=== PATIENT | female | born 1980 | race American Indian/Alaskan Native ===

== ENCOUNTER 2016-08-02 18:18 | Emergency (ER) | payer SELFPAY ==
--- NOTE | 2016-08-02 21:23 | Emergency Department Report ---
ED Lower Extremity HPI - General Chief Complaint: Extremity Problem,Nontraumatic Stated Complaint: RT FOOOT SEVERE PAIN/POSS TORN Time Seen by Provider: 08/02/16 21:18 Source: patient Mode of arrival: Ambulatory Limitations: No Limitations - History of Present Illness Initial Comments: 36-year-old female past medical history obesity presents with complaint of 2-3 months of right heel pain. Patient denies any direct injury to foot or ankle. Denies any acute trauma. States that she has had intermittent pain at the level of the heel on the back of the heel for several months. 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 Patient is fully ambulatory although states that when she steps down on her right heel she feels mild discomfort. Patient is able to ambulate without any assistance. Denies any fevers no chills no changes on skin. Denies any numbness tingling or paresthesias in foot or ankle. States that pain radiates from the heel to the midfoot on the lower aspect of the foot. Patient states the pain is worse at the end of the day after working for several hours. Patient denies using any medicines to medicate her pain at home. Onset/Timin -: month(s) Injury: Foot: Right (2-3 months of right sided heel and foot pain) Place: home, work Severity: moderate Severity scale (0 -10): 4 Improves With: nothing Worsens With: weight bearing - Related Data Previous Rx's Medication Instructions Recorded Last Taken Type Amoxicillin/K Clav Tab [Augmentin 1 tab PO BID #20 tablet 11/19/13 Unknown Rx 875MG] Ibuprofen [Motrin] 800 mg PO Q8H PRN #30 tablet 05/31/14 Unknown Rx traMADol [Ultram 50 MG tab] 50 mg PO Q6HR PRN #14 tablet 05/31/14 Unknown Rx Naproxen [Naprosyn TAB] 500 mg PO BID PRN #30 tablet 08/02/16 Unknown Rx Allergies Allergy/AdvReac Type Severity Reaction Status Date / Time No Known Allergies Allergy Unverified 11/19/13 11:10 ED Review of Systems ROS: Stated complaint: RT FOOOT SEVERE PAIN/POSS TORN Other details as noted in HPI Constitutional: denies: chills, fever Eyes: denies: eye pain, eye discharge, vision change ENT: denies: ear pain, throat pain Respiratory: denies: cough, shortness of breath, wheezing Cardiovascular: denies: chest pain, palpitations Endocrine: no symptoms reported Gastrointestinal: denies: abdominal pain, nausea, diarrhea Genitourinary: denies: urgency, dysuria, discharge Musculoskeletal: as per HPI. denies: back pain, joint swelling, arthralgia Skin: denies: rash, lesions Neurological: denies: headache, weakness, paresthesias Psychiatric: denies: anxiety, depression Hematological/Lymphatic: denies: easy bleeding, easy bruising ED Past Medical Hx - Past Medical History Previous Medical History?: No - Surgical History Past Surgical History?: Yes Additional Surgical History: - Social History Smoking Status: Current Every Day Smoker Substance Use Type: Alcohol - Medications Home Medications: Home Medications Medication Instructions Recorded Confirmed Last Taken Type Amoxicillin/K Clav Tab [Augmentin 1 tab PO BID #20 tablet 11/19/13 Unknown Rx 875MG] Ibuprofen [Motrin] 800 mg PO Q8H PRN #30 tablet 05/31/14 Unknown Rx traMADol [Ultram 50 MG tab] 50 mg PO Q6HR PRN #14 tablet 05/31/14 Unknown Rx Naproxen [Naprosyn TAB] 500 mg PO BID PRN #30 tablet 08/02/16 Unknown Rx ED Physical Exam - General Limitations: No Limitations General appearance: alert, in no apparent distress - Head Head exam: Present: atraumatic, normocephalic - Eye Eye exam: Present: normal appearance, PERRL, EOMI - ENT ENT exam: Present: mucous membranes moist - Neck Neck exam: Present: normal inspection - Respiratory Respiratory exam: Present: normal lung sounds bilaterally. Absent: respiratory distress - Cardiovascular Cardiovascular Exam: Present: regular rate, normal rhythm. Absent: systolic murmur, diastolic murmur, rubs, gallop - GI/Abdominal GI/Abdominal exam: Present: soft, normal bowel sounds - Extremities Exam Extremities exam: Present: normal inspection - Expanded Lower Extremity Exam Right Hip exam: Present: normal inspection, full ROM Upper Leg exam: Present: normal inspection, full ROM Knee exam: Present: normal inspection, full ROM Lower Leg exam: Present: normal inspection, full ROM Ankle exam: Present: normal inspection, full ROM Foot/Toe exam: Present: normal inspection, full ROM (range of motion foot inversion plantar flexion dorsiflexion fully intact and against resistance and gravity), tenderness (patient has mild tenderness at the heel worse with ambulation. Patient also has mild tenderness in mid foot on the palpation) Neuro vascular tendon exam: Present: no vascular compromise (distal dorsalis pedis and posterior tibial pulses fully intact) Gait: Positive: observed and normal 1 - Mild discomfort here 2 - Mild discomfort here as well - Back Exam Back exam: Present: normal inspection - Neurological Exam Neurological exam: Present: alert, oriented X3, CN II-XII intact, normal gait - Psychiatric Psychiatric exam: Present: normal affect, normal mood - Skin Skin exam: Present: warm, dry, intact, normal color. Absent: rash ED Course Vital Signs 08/02/16 19:10 Temperature 97.7 F Pulse Rate 72 Respiratory 20 Rate Blood Pressure 128/72 O2 Sat by Pulse 100 Oximetry ED Lower Extremity MDM - Medical Decision Making A/P: Plantar fasciitis right heel/foot 1-based on patient's symptoms and distribution of pain and clinical history patient has clinical plantar fasciitis no acute trauma reported no clinical signs of infection neurovascularly intact distal sensation and pulses fully intact and foot. No clinical signs of Achilles tendon injury 2-patient is fully ambulatory without assistance 3-naproxen when necessary, R ICE therapy, Josué wrap to foot, orthopedic shoe. I advised patient to use comfortable sneakers and to acquire orthotics and to follow-up with podiatry 4-I educated patient on symptoms of plantar fasciitis Critical care attestation.: If time is entered above; I have spent that time in minutes in the direct care of this critically ill patient, excluding procedure time. ED Disposition Clinical Impression: Plantar fasciitis of right foot, Chronic pain of right heel Disposition: DISCHARGED TO HOME OR SELFCARE Is pt being admited?: No Does the pt Need Aspirin: No Condition: Stable Instructions: Plantar Fasciitis (ED), RICE Therapy (ED) Prescriptions: Naproxen [Naprosyn TAB] 500 mg PO BID PRN #30 tablet PRN Reason: Pain Referrals: SEBASTIAN MONROY DPM [Staff Physician] - 3-5 Days Forms: Work/School Release Form(ED) Time of Disposition: 21:26
[2016-08-02 21:55] VITALS: BP 122/74
== END 2016-08-02 21:54 | disposition home or self-care (01) ==
LOC: ED 18:18
DX: M72.2 Plantar fascial fibromatosis (principal); G89.29 Other chronic pain; M25.571 Pain in right ankle and joints of right foot; F17.200 Nicotine dependence, unspecified, uncomplicated
CPT/HCPCS: 99283

== ENCOUNTER 2017-04-10 23:48 | Emergency (ER) | payer SELFPAY ==
[2017-04-11] MEDS ORDERED: ASPIRIN PO ONE (00:42)
[2017-04-11 01:27] LABS: Basophils % (Auto) 0.2 % (0.0-1.8); Eosinophils # (Auto) 0.1 K/mm3 (0.0-0.4); Eosinophils % (Auto) 0.8 % (0.0-4.3); Hematocrit 41.7 % (30.3-42.9); Hemoglobin 13.7 gm/dl (10.1-14.3); Lymphocytes # (Auto) 3.3 K/mm3 (1.2-5.4); Lymphocytes % (Auto) 36.9 % (13.4-35.0); Mean Corpuscular HGB Conc 33 % (30-34); Mean Corpuscular Hemoglobin 30 pg (28-32); Mean Corpuscular Volume 91 fl (79-97); Monocytes # (Auto) 0.5 K/mm3 (0.0-0.8); Monocytes % (Auto) 5.2 % (0.0-7.3); Platelet Count 239 K/mm3 (140-440); Red Blood Count 4.58 M/mm3 (3.65-5.03); Red Cell Distribution Width 13.3 % (13.2-15.2)
[2017-04-11 01:40] LABS: BUN/Creatinine Ratio 18; Blood Urea Nitrogen 14 mg/dL (7-17); Calcium 8.6 mg/dL (8.4-10.2); Hemolysis Index 10
[2017-04-11 13:37] VITALS: BP 105/71
--- NOTE | 2017-04-11 17:05 | Emergency Department Report ---
ED Chest Pain HPI - General Chief Complaint: Chest Pain Stated Complaint: BACK/CHEST PAIN Time Seen by Provider: 04/11/17 17:00 Source: patient Mode of arrival: Ambulatory Limitations: No Limitations - History of Present Illness Initial Comments: Patient is a 36-year-old female presents to the emergency room with complaints of lower back pain mid back pain and upper back pain as well as chest pain. She states it is muscular. Patient states she works for [employer] has to move a lot of heavy boxes. Patient denies shortness of breath and cough and fever and chills and dizziness and diaphoresis. Patient states the pain is worse when she moves or palpates her chest wall. Patient states her back is very tight. He denies past medical history. Patient denies trauma or fall. MD Complaint: chest pain -: Gradual, days(s) (back and chest pain started 2 days ago) Onset: during rest Pain Location: left chest, right chest Pain Radiation: none Severity: severe Severity scale (0 -10): 10 Quality: sharp, squeezing Consistency: intermittent Improves With: rest, remaining still Worsens With: palpation, movement Context: other (patient states she works for [employer] and has to lift and move a lot of heavy boxes) Treatments Prior to Arrival: none Aspirin use within the Past 7 Days: (0) No - Related Data Previous Rx's Medication Instructions Recorded Last Taken Type Amoxicillin/K Clav Tab [Augmentin 1 tab PO BID #20 tablet 11/19/13 Unknown Rx 875MG] Ibuprofen [Motrin] 800 mg PO Q8H PRN #30 tablet 05/31/14 Unknown Rx Naproxen [Naprosyn TAB] 500 mg PO BID PRN #30 tablet 08/02/16 Unknown Rx Cyclobenzaprine [Flexeril] 10 mg PO Q12H PRN #15 tablet 04/11/17 Unknown Rx traMADol [Ultram 50 MG tab] 50 mg PO Q6HR PRN #14 tablet 04/11/17 Unknown Rx Allergies Allergy/AdvReac Type Severity Reaction Status Date / Time No Known Allergies Allergy Unverified 11/19/13 11:10 Heart Score - HEART Score History: Slightly suspicious EKG: Normal Age: < 45 Risk factors: No known risk factors Troponin: < normal limit HEART Score: 0 ED Review of Systems ROS: Stated complaint: BACK/CHEST PAIN Other details as noted in HPI Constitutional: denies: chills, fever Eyes: denies: eye pain, eye discharge, vision change ENT: denies: ear pain, throat pain Respiratory: denies: cough, shortness of breath, wheezing Cardiovascular: chest pain. denies: palpitations Endocrine: no symptoms reported Gastrointestinal: denies: abdominal pain, nausea, diarrhea Genitourinary: denies: urgency, dysuria, discharge Musculoskeletal: back pain. denies: joint swelling, arthralgia Skin: denies: rash, lesions Neurological: denies: headache, weakness, paresthesias Psychiatric: denies: anxiety, depression Hematological/Lymphatic: denies: easy bleeding, easy bruising ED Past Medical Hx - Past Medical History Previous Medical History?: No - Surgical History Past Surgical History?: No Additional Surgical History: - Family History Family history: no significant, hypertension - Social History Smoking Status: Current Every Day Smoker Substance Use Type: None - Medications Home Medications: Home Medications Medication Instructions Recorded Confirmed Last Taken Type Amoxicillin/K Clav Tab [Augmentin 1 tab PO BID #20 tablet 11/19/13 Unknown Rx 875MG] Ibuprofen [Motrin] 800 mg PO Q8H PRN #30 tablet 05/31/14 Unknown Rx Naproxen [Naprosyn TAB] 500 mg PO BID PRN #30 tablet 08/02/16 Unknown Rx Cyclobenzaprine [Flexeril] 10 mg PO Q12H PRN #15 tablet 04/11/17 Unknown Rx traMADol [Ultram 50 MG tab] 50 mg PO Q6HR PRN #14 tablet 04/11/17 Unknown Rx ED Physical Exam - General Limitations: No Limitations General appearance: alert, in no apparent distress - Head Head exam: Present: atraumatic, normocephalic - Eye Eye exam: Present: normal appearance - ENT ENT exam: Present: mucous membranes moist - Neck Neck exam: Present: normal inspection - Respiratory Respiratory exam: Present: normal lung sounds bilaterally. Absent: respiratory distress - Cardiovascular Cardiovascular Exam: Present: regular rate, normal rhythm, other (tenderness to palpation over bilateral chest wall which reproduces symptoms). Absent: systolic murmur, diastolic murmur, rubs, gallop - GI/Abdominal GI/Abdominal exam: Present: soft, normal bowel sounds - Extremities Exam Extremities exam: Present: normal inspection - Back Exam Back exam: Present: normal inspection, tenderness, muscle spasm - Neurological Exam Neurological exam: Present: alert, oriented X3 - Psychiatric Psychiatric exam: Present: normal affect, normal mood - Skin Skin exam: Present: warm, dry, intact, normal color. Absent: rash ED Course Vital Signs 04/11/17 04/11/17 00:40 13:19 Temperature 98.2 F Pulse Rate 62 70 Respiratory 18 16 Rate Blood Pressure 104/72 105/71 O2 Sat by Pulse 100 100 Oximetry ALEJA score - Aleja Score Age > 65: (0) No Aspirin use within the Past 7 Days: (0) No 3 or more CAD Risk Factors: (0) No 2 or more Angina events in past 24 hrs: (0) No Known CAD with more than 50% Stenosis: (0) No Elevated Cardiac Markers: (0) No ST Deviation Greater than 0.5mm: (0) No ALEJA Score: 0 ED Medical Decision Making - Lab Data Result diagrams: 04/11/17 01:00 04/11/17 01:00 - EKG Data -: EKG Interpreted by Nm EKG shows normal: sinus rhythm Rate: normal - EKG Data When compared to previous EKG there are: no significant change Interpretation: no acute changes, normal EKG - Medical Decision Making Patient is a 36-year-old female presents to the emergency room with chest and back pain. All pain appears to be musculoskeletal and is reproducible with palpation. EKG is normal all cardiac enzymes have been negative 3. Patient is stable for discharge. We'll discharge patient home with a muscle relaxer and pain meds. And instructions to follow up with primary care. - Differential Diagnosis costochondritis. Chest wall pain. Thoracic strain. Lumbar strain. Back Critical care attestation.: If time is entered above; I have spent that time in minutes in the direct care of this critically ill patient, excluding procedure time. ED Disposition Clinical Impression: Costochondritis, acute, Lumbar strain, Strain of thoracic region, Muscle spasm , Chest wall pain Disposition: - TO HOME OR SELFCARE Is pt being admited?: No Does the pt Need Aspirin: No Condition: Stable Instructions: Chest Pain (ED), Muscle Strain (ED), Costochondritis (ED) Additional Instructions: Patient to follow up with orthopedist and primary care within 3-5 days. Patient to rest and not work for 2 days. Patient is take ibuprofen and Tylenol when necessary for pain. Patient to return to ER if condition worsens. Patient to take prescription medications as directed. Prescriptions: Cyclobenzaprine [Flexeril] 10 mg PO Q12H PRN #15 tablet PRN Reason: Muscle Spasm traMADol [Ultram 50 MG tab] 50 mg PO Q6HR PRN #14 tablet PRN Reason: Pain Referrals: PRIMARY CARE, [Primary Care Provider] - 3-5 Days Forms: Work/School Release Form(ED) Time of Disposition: 17:18
== END 2017-04-11 17:47 | disposition home or self-care (01) ==
LOC: ED 23:48
DX: M94.0 Chondrocostal junction syndrome [Tietze] (principal); S39.012A Strain of muscle, fascia and tendon of lower back, initial encounter; S29.012A Strain of muscle and tendon of back wall of thorax, initial encounter; R07.89 Other chest pain; R25.2 Cramp and spasm; X58.XXXA Exposure to other specified factors, initial encounter; Y93.89 Activity, other specified; Y92.89 Other specified places as the place of occurrence of the external cause; Y99.8 Other external cause status
CPT/HCPCS: 36415; 80048; 84484; 85025; 93005; 93010; 99284

== ENCOUNTER 2018-04-20 12:52 | Emergency (ER) | payer OTHER ==
[2018-04-20 13:02] VITALS: BP 112/67
[2018-04-20] MEDS ORDERED: IBUPROFEN PO ONE (13:48)
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
== END 2018-04-20 14:45 | disposition home or self-care (01) ==
LOC: ED 12:52
DX: S46.912A Strain of unspecified muscle, fascia and tendon at shoulder and upper arm level, left arm, initial encounter (principal); F17.200 Nicotine dependence, unspecified, uncomplicated; V49.59XA Passenger injured in collision with other motor vehicles in traffic accident, initial encounter; Y93.89 Activity, other specified; Y92.488 Other paved roadways as the place of occurrence of the external cause; Y99.8 Other external cause status
CPT/HCPCS: 99283

== ENCOUNTER 2018-09-29 17:14 | Emergency (ER) | payer OTHER ==
--- NOTE | 2018-09-29 17:40 | Emergency Department Report ---
Blank Doc - Documentation Documentation: This is a 38-year-old female that presents with pelvic pain. This initial assessment/diagnostic orders/clinical plan/treatment(s) is/are subject to change based on patient's health status, clinical progression and re- assessment by fellow clinical providers in the ED. Further treatment and workup at subsequent clinical providers discretion. Patient/guardians urged not to elope from the ED as their condition may be serious if not clinically assessed and managed. Initial orders include: 1- Patient sent to [facility] for further evaluation and treatment 2- [facility]
[2018-09-29 17:42] VITALS: BP 107/45
[2018-09-29 19:06] LABS: Bacteria,Urine 1+ /HPF (Negative); Bilirubin,Urine NEG (Negative); Blood,Urine MOD (Negative); Color,Urine Amber (Yellow); Mucus,Urine 2+ /HPF; Protein,Urine <15 mg/dL mg/dL (Negative); Urobilinogen,Urine < 2.0 mg/dL (<2.0)
[2018-09-29 19:09] LABS: HCG Qualitative,Urine Negative (Negative)
--- NOTE | 2018-09-29 20:42 | Emergency Department Report ---
ED Female HPI - General Chief complaint: Abdominal Pain Stated complaint: POSS /HIGH BP/NAUSEA/VOMITTING Time Seen by Provider: 09/29/18 17:39 Source: patient Mode of arrival: Ambulatory Limitations: No Limitations - History of Present Illness Initial comments: This is a 38-year-old [place] female who presents to the emergency room with abdominal pain. Patient states she may be because she also had nausea and vomiting. Patient states she never missed a period for tubes still afraid she may possibly be . As mentioned. Lives in 08/10/2018. Patient states she does take several tests which were all negative with the reassurance. MD Complaint: pelvic pain, other (possible ) Location: suprapubic Radiation: non-radiating Severity: mild Severity scale (0 -10): 2 Quality: cramping Consistency: intermittent Improves with: none Worsens with: none Are you Now?: No Last Menstrual Period: 08/10/18 EDC: 05/17/19 Associated Symptoms: denies other symptoms - Related Data Sexually active: Yes Previous Rx's Medication Instructions Recorded Last Taken Type Amoxicillin/K Clav Tab [Augmentin 1 tab PO BID #20 tablet 11/19/13 Unknown Rx 875MG] Ibuprofen [Motrin] 800 mg PO Q8H PRN #30 tablet 05/31/14 Unknown Rx Naproxen [Naprosyn TAB] 500 mg PO BID PRN #30 tablet 08/02/16 Unknown Rx Cyclobenzaprine [Flexeril] 10 mg PO Q12H PRN #15 tablet 04/11/17 Unknown Rx traMADol [Ultram 50 MG tab] 50 mg PO Q6HR PRN #14 tablet 04/11/17 Unknown Rx Cyclobenzaprine [Flexeril] 10 mg PO QHS PRN #10 tablet 04/20/18 Unknown Rx Ibuprofen [Motrin] 600 mg PO Q8H PRN #20 tablet 04/20/18 Unknown Rx Phenazopyridine [Pyridium] 200 mg PO TID #6 tab 09/29/18 Unknown Rx Sulfamethoxazole/Trimethoprim 1 each PO BID #6 tablet 09/29/18 Unknown Rx [Bactrim DS TAB] Allergies Allergy/AdvReac Type Severity Reaction Status Date / Time No Known Allergies Allergy Unverified 11/19/13 11:10 ED Review of Systems ROS: Stated complaint: POSS /HIGH BP/NAUSEA/VOMITTING Other details as noted in HPI Constitutional: denies: chills, fever Respiratory: denies: cough, shortness of breath, wheezing Cardiovascular: denies: chest pain, palpitations Gastrointestinal: abdominal pain, nausea, vomiting. denies: diarrhea Genitourinary: denies: urgency, dysuria, discharge Musculoskeletal: denies: back pain Skin: denies: rash, lesions Neurological: denies: headache, weakness, paresthesias Psychiatric: denies: anxiety, depression ED Past Medical Hx - Past Medical History Previous Medical History?: No Hx Headaches / Migraines: No - Surgical History Additional Surgical History: , tubal ligation - Social History Smoking Status: Current Every Day Smoker Substance Use Type: Alcohol - Medications Home Medications: Home Medications Medication Instructions Recorded Confirmed Last Taken Type Amoxicillin/K Clav Tab [Augmentin 1 tab PO BID #20 tablet 11/19/13 Unknown Rx 875MG] Ibuprofen [Motrin] 800 mg PO Q8H PRN #30 tablet 05/31/14 Unknown Rx Naproxen [Naprosyn TAB] 500 mg PO BID PRN #30 tablet 08/02/16 Unknown Rx Cyclobenzaprine [Flexeril] 10 mg PO Q12H PRN #15 tablet 04/11/17 Unknown Rx traMADol [Ultram 50 MG tab] 50 mg PO Q6HR PRN #14 tablet 04/11/17 Unknown Rx Cyclobenzaprine [Flexeril] 10 mg PO QHS PRN #10 tablet 04/20/18 Unknown Rx Ibuprofen [Motrin] 600 mg PO Q8H PRN #20 tablet 04/20/18 Unknown Rx Phenazopyridine [Pyridium] 200 mg PO TID #6 tab 09/29/18 Unknown Rx Sulfamethoxazole/Trimethoprim 1 each PO BID #6 tablet 09/29/18 Unknown Rx [Bactrim DS TAB] ED Physical Exam - General Limitations: No Limitations General appearance: alert, in no apparent distress, obese - Respiratory Respiratory exam: Present: normal lung sounds bilaterally. Absent: respiratory distress - Cardiovascular Cardiovascular Exam: Present: regular rate, normal rhythm. Absent: systolic murmur, diastolic murmur, rubs, gallop - GI/Abdominal GI/Abdominal exam: Present: soft, normal bowel sounds. Absent: distended, tenderness, guarding, rebound, rigid, organomegaly - Back Exam Back exam: Absent: CVA tenderness (R), CVA tenderness (L) - Neurological Exam Neurological exam: Present: alert, oriented X3 - Psychiatric Psychiatric exam: Present: normal affect, normal mood - Skin Skin exam: Present: warm, dry, intact, normal color. Absent: rash ED Course Vital Signs 09/29/18 17:40 Temperature 98.5 F Pulse Rate 88 Respiratory 16 Rate Blood Pressure 107/45 O2 Sat by Pulse 98 Oximetry ED Medical Decision Making - Lab Data Lab Results 09/29/18 Range/Units 18:54 Urine Color [place] (Yellow) Urine Turbidity Cloudy (Clear) Urine pH 5.0 (5.0-7.0) Ur Specific [place] 1.020 (1.003-1.030) Urine Protein <15 mg/dl (Negative) mg/dL Urine Glucose (UA) Neg (Negative) mg/dL Urine Ketones Neg (Negative) mg/dL Urine Blood Mod (Negative) Urine Nitrite Pos (Negative) Urine Bilirubin Neg (Negative) Urine Urobilinogen < 2.0 (<2.0) mg/dL Ur Leukocyte Esterase Mod (Negative) Urine WBC (Auto) 32.0 H (0.0-6.0) /HPF Urine RBC (Auto) 3.0 (0.0-6.0) /HPF U Epithel Cells (Auto) 15.0 H (0-13.0) /HPF Urine Bacteria (Auto) 1+ (Negative) /HPF Urine Mucus 2+ /HPF Urine HCG, Qual Negative (Negative) - Medical Decision Making Patient was examined by me. Vitals are normal and patient is in no acute distress. Obtained a urinalysis and urine hCG. The test was n egative. Patient's urine is positive for acute cystitis. She will be treated with Bactrim and Pyridium. Instructed to increase fluid intake. Plan was discussed with the patient and she agreed with ER plan. Patient discharged home in stable condition. Instructed to follow-up with the primary care doctor or managing attorney if no improvement of symptoms. Critical care attestation.: If time is entered above; I have spent that time in minutes in the direct care of this critically ill patient, excluding procedure time. ED Disposition Clinical Impression: Pelvic cramping Acute cystitis Qualifiers: Hematuria presence: with hematuria Qualified Code(s): N30.01 - Acute cystitis with hematuria Disposition: DC-01 TO HOME OR SELFCARE Is pt being admited?: No Does the pt Need Aspirin: No Condition: Stable Instructions: Abdominal Pain (ED), Urinary Tract Infection in Women (ED) Additional Instructions: Increase fluid intake to 1L to 2L daily. Complete full course of antibiotics as prescribed. Avoid drinking alcohol while taking antibiotics and for 24 hours after completion. Follow up with primary care provider in 2-3 days. Prescriptions: Sulfamethoxazole/Trimethoprim [Bactrim DS TAB] 1 each PO BID #6 tablet Phenazopyridine [Pyridium] 200 mg PO TID #6 tab Referrals: JOSE MCINTYREVINEMONT MD CONTRERAS [Primary Care Provider] - 3-5 Days [facility] [Outside] - 3-5 Days [facility] [Provider Group] - 3-5 Days [facility] [Provider Group] - 3-5 Days Forms: Work/School Release Form(ED) Time of Disposition: 21:14
== END 2018-09-29 21:37 | disposition home or self-care (01) ==
LOC: ED 17:14
DX: N30.01 Acute cystitis with hematuria (principal); F17.200 Nicotine dependence, unspecified, uncomplicated; Z79.1 Long term (current) use of non-steroidal anti-inflammatories (NSAID); Z79.899 Other long term (current) drug therapy; Z98.51 Tubal ligation status
CPT/HCPCS: 81001; 81025; 87086; 99283

== ENCOUNTER 2020-09-11 15:44 | Emergency (ER) | payer SELFPAY ==
[2020-09-11 15:57] VITALS: BP 138/76
--- NOTE | 2020-09-11 16:11 | Emergency Department Report ---
ED Chest Pain HPI - General Chief Complaint: Chest Pain Stated Complaint: CHEST PAINS SOB Time Seen by Provider: 09/11/20 16:09 Source: patient Mode of arrival: Ambulatory Limitations: No Limitations - History of Present Illness Initial Comments: 40 year old female with hx tobacco use and morbid obesity but no other significant pmhx presents to ED with complaints of substernal chest pain. She states her symptoms started yesterday. She states it has been intermittent in nature and she describes it as an aching pain worse with movement and when she b reathes. She also reports swelling in her lower legs/ankle and feet and pain in her lower legs. She reports SOB and dry cough. She denies any nausea, vomiting, diaphoresis, back pain, URI symptoms fever or chills. She denies hx PE/DVT and she denies family hx of heart disease MD Complaint: chest pain -: Gradual, Last night Severity scale (0 -10): 7 - Related Data Previous Rx's Medication Instructions Recorded Last Taken Type Amoxicillin/K Clav Tab [Augmentin 1 tab PO BID #20 tablet 11/19/13 Unknown Rx 875MG] Ibuprofen [Motrin] 800 mg PO Q8H PRN #30 tablet 05/31/14 Unknown Rx Naproxen [Naprosyn TAB] 500 mg PO BID PRN #30 tablet 08/02/16 Unknown Rx Cyclobenzaprine [Flexeril] 10 mg PO Q12H PRN #15 tablet 04/11/17 Unknown Rx traMADoL [Ultram 50 MG tab] 50 mg PO Q6HR PRN #14 tablet 04/11/17 Unknown Rx Cyclobenzaprine [Flexeril] 10 mg PO QHS PRN #10 tablet 04/20/18 Unknown Rx Ibuprofen [Motrin] 600 mg PO Q8H PRN #20 tablet 04/20/18 Unknown Rx Phenazopyridine [Pyridium] 200 mg PO TID #6 tab 09/29/18 Unknown Rx Sulfamethoxazole/Trimethoprim 1 each PO BID #6 tablet 09/29/18 Unknown Rx [Bactrim DS TAB] Albuterol Mdi (or & Nicu Only) 1 puff IH Q6HR PRN #8.5 gram 09/11/20 Unknown Rx [ProAir HFA Inhaler] Allergies Allergy/AdvReac Type Severity Reaction Status Date / Time No Known Allergies Allergy Unverified 11/19/13 11:10 Heart Score - HEART Score History: Moderately suspicious EKG: Normal Age: < 45 Risk factors: 1-2 risk factors Troponin: < normal limit HEART Score: 2 - EKG Read Time Time EKG Completed: 16:04 EKG Read Time: 16:10 ED Review of Systems ROS: Stated complaint: CHEST PAINS SOB Other details as noted in HPI Comment: All other systems reviewed and negative Respiratory: cough, shortness of breath Cardiovascular: chest pain, orthopnea, edema Gastrointestinal: denies: abdominal pain, nausea, vomiting, diarrhea, constipation, hematemesis Genitourinary: denies: urgency, dysuria, frequency, discharge, abnormal menses, dyspareunia Musculoskeletal: denies: back pain, joint swelling, arthralgia, myalgia Skin: denies: rash, lesions, change in color, change in hair/nails, pruritus Neurological: denies: headache, weakness, numbness, paresthesias, confusion, abnormal gait, vertigo Psychiatric: denies: anxiety, depression, auditory hallucinations, visual jose j lucinations, homicidal thoughts, suicidal thoughts Hematological/Lymphatic: denies: easy bleeding, easy bruising ED Past Medical Hx - Past Medical History Previous Medical History?: No Hx Headaches / Migraines: No - Surgical History Past Surgical History?: Yes Additional Surgical History: , tubal ligation - Social History Smoking Status: Current Every Day Smoker Substance Use Type: Alcohol - Medications Home Medications: Home Medications Medication Instructions Recorded Confirmed Last Taken Type Amoxicillin/K Clav Tab [Augmentin 1 tab PO BID #20 tablet 11/19/13 Unknown Rx 875MG] Ibuprofen [Motrin] 800 mg PO Q8H PRN #30 tablet 05/31/14 Unknown Rx Naproxen [Naprosyn TAB] 500 mg PO BID PRN #30 tablet 08/02/16 Unknown Rx Cyclobenzaprine [Flexeril] 10 mg PO Q12H PRN #15 tablet 04/11/17 Unknown Rx traMADoL [Ultram 50 MG tab] 50 mg PO Q6HR PRN #14 tablet 04/11/17 Unknown Rx Cyclobenzaprine [Flexeril] 10 mg PO QHS PRN #10 tablet 04/20/18 Unknown Rx Ibuprofen [Motrin] 600 mg PO Q8H PRN #20 tablet 04/20/18 Unknown Rx Phenazopyridine [Pyridium] 200 mg PO TID #6 tab 09/29/18 Unknown Rx Sulfamethoxazole/Trimethoprim 1 each PO BID #6 tablet 09/29/18 Unknown Rx [Bactrim DS TAB] Albuterol Mdi (or & Nicu Only) 1 puff IH Q6HR PRN #8.5 gram 09/11/20 Unknown Rx [ProAir HFA Inhaler] ED Physical Exam - General Limitations: No Limitations General appearance: alert, in no apparent distress, obese - Head Head exam: Present: atraumatic, normocephalic, normal inspection - Eye Eye exam: Present: normal appearance, PERRL, EOMI Pupils: Present: normal accommodation - ENT ENT exam: Present: normal exam, mucous membranes moist - Neck Neck exam: Present: normal inspection, full ROM - Respiratory Respiratory exam: Present: normal lung sounds bilaterally. Absent: respiratory distress, wheezes, rales, rhonchi, stridor - Cardiovascular Cardiovascular Exam: Present: regular rate, normal rhythm, normal heart sounds - Extremities Exam Extremities exam: Present: full ROM, tenderness (diffuse ttp bilateral LE ), pedal edema (mild 1+ edema bilateral LE and ankle ), calf tenderness (bilateral LE) - Neurological Exam Neurological exam: Present: alert, oriented X3, CN II-XII intact, normal gait ED Course Vital Signs 09/11/20 09/11/20 15:56 22:20 Temperature 98.3 F Pulse Rate 77 86 Respiratory 18 16 Rate Blood Pressure 138/76 [Right] O2 Sat by Pulse 96 99 Oximetry NUNO score - Nuno Score Age > 65: (0) No Aspirin use within the Past 7 Days: (0) No 3 or more CAD Risk Factors: (0) No 2 or more Angina events in past 24 hrs: (0) No Known CAD with more than 50% Stenosis: (0) No Elevated Cardiac Markers: (0) No ST Deviation Greater than 0.5mm: (0) No NUNO Score: 0 ED Medical Decision Making - Lab Data Result diagrams: 09/11/20 17:25 09/11/20 17:25 - EKG Data EKG shows normal: sinus rhythm Rate: normal (67) - EKG Data Interpretation: normal EKG 09/11/20 22:04 Patient had a repeat EKG at 20 1:23 PM but it showed lead reversal and need to be repeated. Third repeat EKG which was done at 20 1:51 PM showed sinus bradycardia with a r ate of 57 but otherwise normal EKG - Radiology Data Radiology results: report reviewed Patient: RAVIN ROBERTS MR#: [id number] : 1980 Acct:[id number] Age/Sex: 40 / F ADM Date: 09/11/20 Loc: ED Attending Dr: Ordering Physician: CITLALY MORILLO Date of Service: 09/11/20 Procedure(s): XR chest routine 2V Accession Number(s): [id number] cc: CITLALY MORILLO Fluoro Time In Minutes: CHEST 2 VIEWS INDICATION / CLINICAL INFORMATION: Chest Pain. COMPARISON: None available. FINDINGS: SUPPORT DEVICES: None. HEART / MEDIASTINUM: No significant abnormality. LUNGS / PLEURA: Minimal linear density in the right upper lung No pneumothorax. ADDITIONAL FINDINGS: No significant additional findings. IMPRESSION: Minimal linear density in the right upper lung representing either scar or subsegmental atelectasis. The left lung is clear. Signer Name: Joseph Lo MD FACR Signed: 09/11/2020 5:54 PM Workstation Name: [id number] Transcribed By: MS Dictated By: Joseph Lo MD Electronically Authenticated By: Joseph Lo MD Signed Date/Time: 09/11/201753 DD/ 52 TD/TT: Patient: RAVIN ROBERTS MR#: [id number] : 1980 Acct:[id number] Age/Sex: 40 / F ADM Date: 09/11/20 Loc: ED Attending Dr: Ordering Physician: CITLALY MORILLO Date of Service: 09/11/20 Procedure(s): VL venous duplex LE BILAT Accession Number(s): [id number] cc: CITLALY MORILLO DUPLEX DOPPLER LOWER EXTREMITY VEINS, BILATERAL INDICATION / CLINICAL INFORMATION: LE swelling/calf pain. TECHNIQUE: Duplex doppler imaging was performed through the veins of both lower extremities using venous compression and other maneuvers. COMPARISON: None available. FINDINGS: RIGHT COMMON FEMORAL VEIN: Negative. RIGHT FEMORAL VEIN: Negative. RIGHT POPLITEAL VEIN: Negative. RIGHT CALF VEINS: Negative. LEFT COMMON FEMORAL VEIN: Negative. LEFT FEMORAL VEIN: Negative. LEFT POPLITEAL VEIN: Negative. LEFT CALF VEINS: Negative. ADDITIONAL FINDINGS: None. IMPRESSION: 1. No sonographic evidence for DVT in either lower extremity. Signer Name: Holger Oneill MD Signed: 09/11/2020 5:04 PM Workstation Name: [email or web address] Transcribed By: RILEY Dictated By: HOLGER ONEILL MD Electronically Authenticated By: HOLGER ONEILL MD Signed Date/Time: 09/11/201703 DD/ 03 TD/TT: Patient: RAVIN ROBERTS MR#: [id number] : 1980 Acct:[id number] Age/Sex: 40 / F ADM Date: 09/11/20 Loc: ED Attending Dr: Ordering Physician: CITLALY MORILLO Date of Service: 09/11/20 Procedure(s): CT angio chest Accession Number(s): [id number] cc: CITLALY MORILLO CTA chest with contrast INDICATION : SOB 100 ML OMNI 350 . TECHNIQUE: Axial imaging performed through the chest, with contrast bolus timing set to maximize opacification of the pulmonary arteries. 3-plane MIP reformatted images were obtained. All CT scans at this location are performed using CT dose reduction for ALARA by means of automated exposure control. 100 mL of intravenous contrast administered. COMPARISON: There is a CTA chest from 11/19/2013 which was not available at the time of this dictation. FINDINGS: Bolus/PTE: Contrast bolus timing is adequate. No filling defect is present to suggest PTE. Mediastinum: Heart and great vessels appear normal. No pathologic mediastinal adenopathy. Lungs: There are several areas of streaky airspace disease following a bronchovascular distribution with bronchiectasis. Findings are seen in both upper lobes, the medial left lower lobe, and there is groundglass airspace disease in the central right lower lobe. No pleural effusion identified. Upper abdomen: Limited imaging of the upper abdomen shows nothing acute. Bones: Degenerative changes in the spine with nothing acute. IMPRESSION: 1. Negative for PTE. 2. Streaky airspace disease in both lungs may at least in part be chronic given bronchiectasis. No dense consolidation or effusion. Signer Name: Jose Freitas MD Signed: 09/11/2020 8:09 PM Workstation Name: [email or web address] Transcribed By: ESTELITA Dictated By: Jose Freitas MD Electronically Authenticated By: Jose Freitas MD Signed Date/Time: 09/11/202008 DD/ 03 TD/TT: - Medical Decision Making Labs reviewed --CBC and CMP unremarkable. Patient has had 2 - troponin. BNP is normal. Chest x-ray showed some atelectasis but otherwise nothing acute. Venous Dopplers were negative for DVT. CTA chest showed no PE but streaky airspace disease which may be chronic. No pneumonia or pneumothorax are seen. No significant changes in the EKGs. Patient currently resting comfortably. She is not in any acute pain or respiratory distress. She is well-appearing and nontoxic. She is neurologically intact with a normal gait. Repeat vital signs are stable. pt has heart score of 2 Discussed case as well as labs and EKG results and imaging results with Dr. Encarnacion, since Dr Moore had already left for the day and she recommend faxing patient's facesheet with her information to [facility] where they will contact her for urgent cardiology follow-up. Discussed labs, imaging and EKG results with patient. Informed her that we will be faxing her information over to [facility] and they will contact her for a follow-up visit with the electronic imaging system operator. In the meantime she will be discharged home with a prescription for an albuterol inhaler, also recommend that she start taking a baby aspirin daily and Tylenol as needed for pain. Also recommend elevating her leg as often as possible. Patient expressed understanding of instructions and agree with plan. she also understands that if her symptoms changes or worsens in any way to return to the ER. Critical care attestation.: If time is entered above; I have spent that time in minutes in the direct care of this critically ill patient, excluding procedure time. ED Disposition Clinical Impression: Atypical chest pain, Dyspnea Disposition: DC-01 TO HOME OR SELFCARE Is pt being admited?: No Does the pt Need Aspirin: No Condition: Stable Instructions: Nonspecific Chest Pain, Adult, Shortness of Breath, Adult Additional Instructions: Use the inhaler as prescribed and as needed. I recommend taking tylenol as needed for pain and also recommend that you start taking a baby aspirin daily. Your information was faxed over to [facility], and the will contact you for cardiology follow-up. It is important that you follow-up with the electronic imaging system operator for additional work-up including an echocardiogram and an o utpatient stress test. You will also be given referral to local primary care doctor which is listed on the discharge instructions. Elevate your leg to help with the swelling. I will also monitor your salt intake. It also is important that you try to stop smoking. Prescriptions: Albuterol Mdi (or & Nicu Only) [ProAir HFA Inhaler] 1 puff IH Q6HR PRN #8.5 gram PRN Reason: Shortness Of Breath Referrals: MYRON SAMAYOA MD [Staff Physician] - 3-5 Days (Primary care doctor) JOSE ALEJANDRO VIDAL MD [Staff Physician] - 3-5 Days (Pantry Attendant ) Forms: Work/School Release Form(ED) Time of Disposition: 22:03
--- NOTE | 2020-09-11 17:08 | Vascular Lab Report ---
DUPLEX DOPPLER LOWER EXTREMITY VEINS, BILATERAL INDICATION / CLINICAL INFORMATION: LE swelling/calf pain. TECHNIQUE: Duplex doppler imaging was performed through the veins of both lower extremities using venous jaycob mynor and other maneuvers. COMPARISON: None available. FINDINGS: RIGHT COMMON FEMORAL VEIN: Negative. RIGHT FEMORAL VEIN: Negative. RIGHT POPLITEAL VEIN: Negative. RIGHT CALF VEINS: Negative. LEFT COMMON FEMORAL VEIN: Negative. LEFT FEMORAL VEIN: Negative. LEFT POPLITEAL VEIN: Negative. LEFT CALF VEINS: Negative. ADDITIONAL FINDINGS: None. IMPRESSION: 1. No sonographic evidence for DVT in either lower extremity. Signer Name: Antolin Oneill MD Signed: 09/11/2020 5:04 PM Workstation Name: [email or web address] [id number]
--- NOTE | 2020-09-11 17:58 | XRay Report ---
CHEST 2 VIEWS INDICATION / CLINICAL INFORMATION: Chest Pain. COMPARISON: None available. FINDINGS: SUPPORT DEVICES: None. HEART / MEDIASTINUM: No significant abnormality. LUNGS / PLEURA: Minimal linear density in the right upper lung No pneumothorax. ADDITIONAL FINDINGS: No significant additional findings. IMPRESSION: Minimal linear density in the right upper lung representing either scar or subsegmental atelectasis. The left lung is clear. Signer Name: Joseph Lo MD FACR Signed: 09/11/2020 5:54 PM Workstation Name: [id number]
[2020-09-11 18:01] LABS: Basophils % (Auto) 0.2 % (0.0-1.8); Eosinophils # (Auto) 0.1 K/mm3 (0.0-0.4); Eosinophils % (Auto) 1.6 % (0.0-4.3); Hematocrit 41.3 % (30.3-42.9); Hemoglobin 13.5 gm/dl (10.1-14.3); Lymphocytes # (Auto) 2.3 K/mm3 (1.2-5.4); Lymphocytes % (Auto) 28.9 % (13.4-35.0); Mean Corpuscular HGB Conc 33 % (30-34); Mean Corpuscular Volume 86 fl (79-97); Monocytes # (Auto) 0.4 K/mm3 (0.0-0.8); Monocytes % (Auto) 5.3 % (0.0-7.3); Platelet Count 273 K/mm3 (140-440); Red Blood Count 4.78 M/mm3 (3.65-5.03); Red Cell Distribution Width 14.7 % (13.2-15.2)
[2020-09-11 18:14] LABS: INR 0.84 (0.87-1.13)
[2020-09-11 18:16] LABS: Alanine Aminotransferase 15 units/L (7-56); Albumin 3.5 g/dL (3.9-5); BUN/Creatinine Ratio 7; Blood Urea Nitrogen 6 mg/dL (7-17); Calcium 8.8 mg/dL (8.4-10.2); Hemolysis Index 7
--- NOTE | 2020-09-11 20:13 | Cat Scan Report ---
CTA chest with contrast INDICATION : SOB 100 ML OMNI 350 . TECHNIQUE: Axial imaging performed through the chest, with contrast bolus timing set to maximize opa cification of the pulmonary arteries. 3-plane MIP reformatted images were obtained. All CT scans at this location are performed using CT dose reduction for ALARA by means of automated exposure control. 100 mL of intravenous contrast administered. COMPARISON: There is a CTA chest from 11/19/2013 which was not available at the time of this dictation . FINDINGS: Bolus/PTE: Contrast bolus timing is adequate. No filling defect is present to suggest PTE. Mediastinum: Heart and great vessels appear normal. No pathologic mediastinal adenopathy. Lungs: There are several areas of streaky airspace disease following a bronchovascular distribution with bronchiectasis. Findings are seen in both upper lobes, the medial left lower lobe, and there is groundglass airspace disease in the central right lower lobe. No pleural effusion identified. Upper abdomen: Limited imaging of the upper abdomen shows nothing acute. Bones: Degenerative changes in the spine with nothing acute. IMPRESSION: 1. Negative for PTE. 2. Streaky airspace disease in both lungs may at least in part be chronic given bronchiectasis. No de nse consolidation or effusion. Signer Name: Jose Freitas MD Signed: 09/11/2020 8:09 PM Workstation Name: [id number]
--- NOTE | 2020-09-15 18:34 | Electrocardiograph Report ---
[facility] Test Date: 2020-09-11 Test Time: 16:04:38 Pat Name: RAVIN ROBERTS Department: Room: Gender: F [employer] Operator: MICHAEL : 1980 Requested By: CITLALY MORILLO Order Number: [id number] Reading MD: Robe Dunne Measurements Intervals [place] Rate: 67 P: 1 VT: 150 QRS: -2 QRSD: 83 T: 11 QT: 372 QTc: 393 Interpretive Statements Sinus rhythm No previous ECG available for comparison Electronically Signed On 09-15-2020 18:33:53 EDT by Robe Dunne
--- NOTE | 2020-09-15 18:52 | Electrocardiograph Report ---
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 Electronically Signed On 09-15-2020 18:51:49 EDT by Robe Dunne
== END 2020-09-11 22:20 | disposition home or self-care (01) ==
LOC: ED 15:44
DX: R07.89 Other chest pain (principal); R06.00 Dyspnea, unspecified; F17.200 Nicotine dependence, unspecified, uncomplicated; Z98.51 Tubal ligation status; Z98.890 Other specified postprocedural states; Z72.89 Other problems related to lifestyle; Z79.899 Other long term (current) drug therapy
CPT/HCPCS: 36415; 71046; 71275; 80053; 83690; 83880; 84484; 85025; 85610; 85730; 93005; 93970; 99284; Q9967

== ENCOUNTER 2021-02-19 16:09 | Emergency (ER) | payer OTHER ==
[2021-02-19 16:21] VITALS: BP 133/83
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
== END 2021-02-19 17:07 | disposition home or self-care (01) ==
LOC: ED 16:09
DX: M76.62 Achilles tendinitis, left leg (principal); F17.200 Nicotine dependence, unspecified, uncomplicated
CPT/HCPCS: 99282

== ENCOUNTER 2021-05-04 16:59 | Emergency (ER) | payer OTHER ==
[2021-05-04 22:10] LABS: Bilirubin,Urine NEG (Negative); Blood,Urine SM (Negative); Color,Urine Yellow (Yellow); Protein,Urine <15 mg/dL mg/dL (Negative); Urobilinogen,Urine < 2.0 mg/dL (<2.0); WBC,Urine < 1.0 /HPF (0.0-6.0)
[2021-05-04 22:15] LABS: HCG Qualitative,Urine Negative (Negative)
[2021-05-04 22:19] LABS: RBC,Urine < 1.0 /HPF (0.0-6.0)
[2021-05-04] MEDS ORDERED: LIDOCAINE-MPF (1%) 10 MG/1 ML VIAL 5 ML INFILTRATI ONE (22:59)
--- NOTE | 2021-05-04 23:39 | Emergency Department Report ---
ED Female HPI - General Chief complaint: Urogenital-Female Stated complaint: STD CHECK Source: patient Mode of arrival: Ambulatory Limitations: No Limitations - History of Present Illness Initial comments: Patient is a 41-year-old -[place] female with no past medical history presents to the ED with complaint of acute onset persistent urinary urgency and frequency, vaginal itching, vaginal discharge and dysuria for the last 2 days. Patient states that her sexual partner was diagnosed and treated for gonorrhea infection about 1 week ago. Patient states that she had unprotected sexual intercourse with the same individual and there after the individual was diagnosed with gonorrhea and chlamydia and was treated. Patient denies dizziness, syncope, fever, chills, vaginal bleeding, dyspareunia, low back pain, abdominal pain, nausea and vomiting oral chest pain or shortness of breath or sore throat. MD Complaint: vaginal discharge, dysuria, possible STD, other (Vaginal itching and discharge) -: Sudden, days(s) (2) Location: labia, other (vaginal) Radiation: non-radiating Severity: moderate Severity scale (0 -10): 4 Quality: burning, aching Consistency: constant Improves with: none Worsens with: none Are you Now?: No Last Menstrual Period: 05/01/21 EDC: 02/05/22 Associated Symptoms: denies other symptoms, vaginal discharge, dysuria. denies: vaginal bleeding, abdominal pain, nausea/vomiting, fever/chills, headaches, loss of appetite, hematuria, rash, seizure, shortness of breath, syncope, weakness, other - Related Data Sexually active: Yes Previous Rx's Medication Instructions Recorded Last Taken Type Amoxicillin/K Clav Tab [Augmentin 1 tab PO BID #20 tablet 11/19/13 Unknown Rx 875MG] Cyclobenzaprine [Flexeril] 10 mg PO Q12H PRN #15 tablet 04/11/17 Unknown Rx traMADoL [Ultram 50 MG tab] 50 mg PO Q6HR PRN #14 tablet 04/11/17 Unknown Rx Cyclobenzaprine [Flexeril] 10 mg PO QHS PRN #10 tablet 04/20/18 Unknown Rx Albuterol Mdi (or & Nicu Only) 1 puff IH Q6HR PRN #8.5 gram 09/11/20 Unknown Rx [ProAir HFA Inhaler] Ketorolac [Toradol] 10 mg PO Q6H PRN #20 tablet 02/19/21 Unknown Rx Doxycycline Hyclate 100 mg PO Q12H #28 cap 05/04/21 Unknown Rx Fluconazole [Diflucan TAB] 200 mg PO QDAY #2 tablet 05/04/21 Unknown Rx metroNIDAZOLE [Flagyl] 500 mg PO Q12HR #14 tab 05/04/21 Unknown Rx Allergies Allergy/AdvReac Type Severity Reaction Status Date / Time No Known Allergies Allergy Verified 02/19/21 16:21 ED Review of Systems ROS: Stated complaint: STD CHECK Other details as noted in HPI Constitutional: denies: chills, fever Eyes: denies: eye pain, eye discharge, vision change ENT: denies: ear pain, throat pain Respiratory: denies: cough, shortness of breath, wheezing Cardiovascular: denies: chest pain, palpitations Endocrine: no symptoms reported Gastrointestinal: denies: abdominal pain, nausea, diarrhea Genitourinary: urgency, dysuria, frequency, discharge. denies: abnormal menses, dyspareunia Musculoskeletal: denies: back pain, joint swelling, arthralgia Skin: denies: rash, lesions Neurological: denies: headache, weakness, paresthesias Psychiatric: denies: anxiety, depression Hematological/Lymphatic: denies: easy bleeding, easy bruising ED Past Medical Hx - Past Medical History Hx Headaches / Migraines: No - Surgical History Additional Surgical History: , tubal ligation - Social History Smoking Status: Current Every Day Smoker Substance Use Type: Alcohol - Medications Home Medications: Home Medications Medication Instructions Recorded Confirmed Last Taken Type Amoxicillin/K Clav Tab [Augmentin 1 tab PO BID #20 tablet 11/19/13 Unknown Rx 875MG] Cyclobenzaprine [Flexeril] 10 mg PO Q12H PRN #15 tablet 04/11/17 Unknown Rx traMADoL [Ultram 50 MG tab] 50 mg PO Q6HR PRN #14 tablet 04/11/17 Unknown Rx Cyclobenzaprine [Flexeril] 10 mg PO QHS PRN #10 tablet 04/20/18 Unknown Rx Albuterol Mdi (or & Nicu Only) 1 puff IH Q6HR PRN #8.5 gram 09/11/20 Unknown Rx [ProAir HFA Inhaler] Ketorolac [Toradol] 10 mg PO Q6H PRN #20 tablet 02/19/21 Unknown Rx Doxycycline Hyclate 100 mg PO Q12H #28 cap 05/04/21 Unknown Rx Fluconazole [Diflucan TAB] 200 mg PO QDAY #2 tablet 05/04/21 Unknown Rx metroNIDAZOLE [Flagyl] 500 mg PO Q12HR #14 tab 05/04/21 Unknown Rx ED Physical Exam - General Limitations: No Limitations General appearance: alert, in no apparent distress - Head Head exam: Present: atraumatic, normocephalic, normal inspection - Eye Eye exam: Present: normal appearance, PERRL, EOMI Pupils: Present: normal accommodation - ENT ENT exam: Present: normal exam, normal orophraynx, mucous membranes moist, TM's normal bilaterally, normal external ear exam - Neck Neck exam: Present: normal inspection, full ROM - Respiratory Respiratory exam: Present: normal lung sounds bilaterally. Absent: respiratory distress, wheezes, rales, rhonchi, chest wall tenderness, accessory muscle use, decreased breath sounds, prolonged expiratory, other - Cardiovascular Cardiovascular Exam: Present: regular rate, normal rhythm, normal heart sounds. Absent: systolic murmur, diastolic murmur, rubs, gallop - GI/Abdominal GI/Abdominal exam: Present: soft, normal bowel sounds. Absent: tenderness, guarding, rebound, hyperactive bowel sounds, organomegaly, mass, bruit - Bi-manual exam: Present: other (Pelvic exam deferred, patient prefers self swab) - Extremities Exam Extremities exam: Present: normal inspection, full ROM, normal capillary refill - Back Exam Back exam: Present: normal inspection, full ROM. Absent: tenderness, CVA tenderness (R), CVA tenderness (L), muscle spasm, paraspinal tenderness, vertebral tenderness - Neurological Exam Neurological exam: Present: alert, oriented X3, CN II-XII intact, normal gait, reflexes normal - Psychiatric Psychiatric exam: Present: normal affect, normal mood - Skin Skin exam: Present: warm, dry, intact, normal color. Absent: rash ED Course Vital Signs 05/04/21 17:12 Temperature 98.0 F Pulse Rate 87 Respiratory 20 Rate Blood Pressure 148/79 O2 Sat by Pulse 100 Oximetry ED Medical Decision Making - Medical Decision Making This is a 41-year-old -[place] female with no past medical history presents to the ED with complaint of acute onset persistent urinary urgency and frequency, vaginal itching, vaginal discharge and dysuria for the last 2 days. Patient states that her sexual partner was diagnosed and treated for gonorrhea infection about 1 week ago. Patient states that she had unprotected sexual intercourse with the same individual and there after the individual was diagnosed with gonorrhea and chlamydia and was treated. In the ED, patient is alert and oriented x3 and is not in any distress. Urinalysis showed urinary tract infection and wet prep test was positive for Gardnerella vaginalis but negative for trichomonas and yeast. Patient was treated empirically with Rocephin 1 g intramuscular injection and discharged home on medications for chlamydia doxycycline and Flagyl for bacterial vaginosis. Patient was discharged home and advised to follow-up with the [facility] for further STD test including HIV and syphilis. Patient was also encouraged to observe safe sexual practices and to ensure that her sexual partner also gets treated for the same. Patient is advised return to the ED immediately if symptoms get worse. - Differential Diagnosis UTI; gonorrhea; chlamydia; bacterial vaginosis; trichomonas Critical care attestation.: If time is entered above; I have spent that time in minutes in the direct care of this critically ill patient, excluding procedure time. ED Disposition Clinical Impression: Acute urinary tract infection, Bacterial vaginosis, Exposure to STD, Gonorrhea contact Disposition: 01 HOME / SELF CARE / HOMELESS Is pt being admited?: No Does the pt Need Aspirin: No Condition: Stable Instructions: Bacterial Vaginosis (ED), Bacterial Vaginosis, [id number], Urinary Tract Infection, Adult, [id number], Safe Sex, Chlamydia, Female, [id number], Gonorrhea, Preventing Sexually Transmitted Infections, Adult Additional Instructions: Follow-up with the [facility] for further STD testing including HIV and syphilis. Return to the ED immediately if symptoms get worse. Ensure that your sexual partner gets treated as well. Observe safe sexual p ractices. Prescriptions: Fluconazole [Diflucan TAB] 200 mg PO QDAY #2 tablet Doxycycline Hyclate 100 mg PO Q12H #28 cap metroNIDAZOLE [Flagyl] 500 mg PO Q12HR #14 tab Referrals: [facility] [Outside] - 3-5 Days Forms: STI Treatment and Prevention Time of Disposition: 23:39 Print Language: HONDURAN
[2021-05-05 00:33] VITALS: BP 131/77
== END 2021-05-05 00:22 | disposition home or self-care (01) ==
LOC: ED 16:59
DX: N39.0 Urinary tract infection, site not specified (principal); N76.0 Acute vaginitis; A54.9 Gonococcal infection, unspecified; F17.200 Nicotine dependence, unspecified, uncomplicated; Z72.89 Other problems related to lifestyle; Z98.51 Tubal ligation status; Z98.890 Other specified postprocedural states; Z79.899 Other long term (current) drug therapy
CPT/HCPCS: 81001; 81025; 87210; 96372; 99283; J0696; J3490